=== PATIENT | male | born 1935 | race Caucasian/White ===

== ENCOUNTER 2019-06-28 09:11 | Outpatient (CLI) | payer MEDICARE, OTHER, SELFPAY ==
[2019-06-30 21:03] LABS: PSA, Free 4.51 ng/mL; PSA, Total 35.7 ng/mL (<=4.0)
== END 2019-06-28 09:12 | disposition home or self-care (01) ==
PROVIDERS: PCP Internal Medicine; Visit Provider Radiology Radiation Oncology
DX: C61 Malignant neoplasm of prostate (principal)
CPT/HCPCS: 36415; 84153; 84154

== ENCOUNTER 2020-02-01 06:35 | Outpatient (CLI) | payer MEDICARE, OTHER, SELFPAY ==
--- NOTE | ~2020-02-01 | NM_ITS ---
EXAMINATION: NM bone scan whole body DATE: 02/01/2020 10:11 INDICATION: Prostate cancer. TECHNIQUE: 23.7 mCi Tc-99m HDP was administered intravenously. Delayed whole-body scintigrams were o btained. COMPARISON: Bone scan 07/13/2019, CT chest, abdomen, and pelvis 02/01/2020 FINDINGS: There is joint-centimeters increased activity in the first carpometacarpal joints without r adiographic comparison, consistent with osteoarthritis. There is increased activity in lesser trochan ter of proximal left femur correlate with a sclerotic lesion by CT. There is increased activity in le ft ilium near the sacral iliac joint correlating with a sclerotic lesion by CT. There are foci of inc reased activity in L3, L4, and L5 correlating with sclerotic lesions by CT. There are multiple lesion s of increased activity in the ribs with CT correlates. There is a lesion of increased activity in T9 vertebral body correlating with a sclerotic lesion by CT. IMPRESSION: 1. Multiple bone lesions with worsening from 07/13/2019, consistent with metastatic disease. Reviewed, dictated and finalized at location A. IMPRESSION: 1. Multiple bone lesions with worsening from 07/13/2019, consistent with metastat ic disease.
--- NOTE | ~2020-02-01 | CT_ITS ---
EXAMINATION: CT chest abdomen pelvis w con EXAM DATE: 02/01/2020 07:14 INDICATION: Prostate cancer. L4 sclerotic focus. TECHNIQUE: Spiral CT of the chest, abdomen and pelvis was performed following intravenous injection o f 100 mL Omnipaque 350. Axial, coronal and sagittal images were reviewed. Coronal maximum intensity pixel images of chest reviewed. The dose-length product (DLP) for this examination was 910.19 mGy-c m. The exposure was tailored according to patient size (auto mA exposure control), and iterative rec onstruction (ASIR) was used as additional dose reduction technique. Comparison is made to prior exami nation from 07/13/2019. FINDINGS: CHEST: The lungs are clear. There is mild emphysema. There are no pleural or pericardial effusions. Tracheobronchial tree is patent. There is no mediastinal, hilar or axillary lymphadenopathy. Th ere is no pneumothorax. Heart normal in size. There are sternotomy wires, and cardiac/coronary coy rgical changes. Correlate with prior history. ABDOMEN PELVIS: Again there is mildly aneurysmal mid abdominal aorta at 3.5 cm, with short segment in timal flap. Moderate scattered aortoiliac arterial sclerotic disease. There is aneurysmal right commo n iliac artery to 3.4 cm. Multiple small liver cysts. Tiny cholelithiasis. Portal and splenic vein s are patent. Kidneys enhance symmetrically. There is no hydronephrosis. Exophytic left renal cyst measuring 4 cm. Patient has likely had prostatectomy. Pelvic lymph node dissection. The bladder is undistended at time of imaging. There is no retroperitoneal or pelvic lymphadenopathy. Small umbil ical abdominal wall dehiscence. The appendix is not positively visualized. There is no pericecal inflammatory change to suggest appe ndicitis. There is moderate scattered colonic diverticulosis. There is no adjacent inflammatory pacheco ge to suggest diverticulitis. The stomach and small bowel are unremarkable. There is expected amount of colonic stool. No free intraperitoneal gas. There is an old left scapular fracture. Again there is sclerosis involving sizable portion of the L4 vertebral body, increase in sclerosis compared to p rior study. There is 9 mm sclerotic focus in the right 6th rib fracture laterally not identified on p rior study. Old right 5th rib fracture laterally. IMPRESSION: 1. Interval increase in density of L4 sclerotic focus. Development of right 6th rib sclerotic focus. 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 2. Abdominal aortic and right iliac aneurysms. Short segment abdominal aortic intimal flap unchanged . 3. Colonic diverticulosis. 4. Mild emphysema. Reviewed, dictated and finalized at location A. IMPRESSION: 1. Interval increase in density of L4 sclerotic focus. Development of right 6t h rib sclerotic focus. 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 2. Abdominal aortic and right iliac aneurysms. Short segment abdominal aortic intimal flap unchanged. 3. Colonic diverticulosis. 4. Mild emphysema.
== END 2020-02-01 06:36 | disposition home or self-care (01) ==
LOC: ANHIMG 06:37
PROVIDERS: PCP Internal Medicine; Visit Provider Internal Medicine Hematology & Oncology
DX: C61 Malignant neoplasm of prostate (principal); M89.9 Disorder of bone, unspecified; I71.4 Abdominal aortic aneurysm, without rupture; K57.90 Diverticulosis of intestine, part unspecified, without perforation or abscess without bleeding; J43.9 Emphysema, unspecified
CPT/HCPCS: 71260; 74177; 78306; A9561; Q9967

== ENCOUNTER 2020-08-31 11:37 | Outpatient (CLI) | payer MEDICARE, OTHER, SELFPAY ==
--- NOTE | 2020-08-31 11:49 | ECG_ITS ---
Measurements Intervals [place] Rate: 74 P: -11 DC: 134 QRS: 18 QRSD: 94 T: 79 QT: 366 QTc: 406 Interpretive Statements SINUS RHYTHM BORDERLINE ST-T WAVE ABNORMALITY- ANTEROLAT/HIGH LAT LEADS BASELINE ARTIFACT- I, III, AVR, AVL, AVF BORDERLINE ECG Electronically Signed On 08-31-2020 12:41:57 [employer]CR[employer]E BLOCK [employer] by Hossein Martinez D.O.
[2020-08-31 12:39] LABS: INR 0.9; Partial Thromboplastin Time 28.7 SECONDS (22.3-36.8); Prothrombin Time 12.6 Seconds (11.1-14.7)
== END 2020-08-31 11:38 | disposition home or self-care (01) ==
LOC: ANHSURGERY 11:40
PROVIDERS: PCP Internal Medicine; Visit Provider Urology
DX: Z01.818 Encounter for other preprocedural examination (principal); R31.9 Hematuria, unspecified; I10 Essential (primary) hypertension; R94.31 Abnormal electrocardiogram [ECG] [EKG]
CPT/HCPCS: 36415; 85610; 85730; 87086; 93005

== ENCOUNTER → 2020-09-02 02:54 | Outpatient (CLI) | payer MEDICARE, OTHER, SELFPAY ==
[2020-09-02 19:41] LABS: SARS-CoV-2 RNA PCR Negative
== END ==
PROVIDERS: PCP Internal Medicine; Visit Provider Urology
DX: Z01.812 Encounter for preprocedural laboratory examination (principal); Z20.822 Contact with and (suspected) exposure to COVID-19
CPT/HCPCS: C9803; U0003; U0005

== ENCOUNTER → 2020-09-09 00:54 | Outpatient (CLI) | payer MEDICARE, OTHER, SELFPAY ==
[2020-09-09 19:47] LABS: SARS-CoV-2 RNA PCR Negative
== END ==
PROVIDERS: PCP Internal Medicine; Visit Provider Urology
DX: Z01.812 Encounter for preprocedural laboratory examination (principal); Z20.822 Contact with and (suspected) exposure to COVID-19
CPT/HCPCS: C9803; U0003; U0005

== ENCOUNTER 2020-09-12 00:54 | Day surgery (SDC) | payer MEDICARE, OTHER, SELFPAY ==
[2020-08-31 10:44] VITALS: BMI 27.3
[2020-09-05 13:57] VITALS: BMI 27.3
[2020-09-12] VITALS (8 sets, daily range): BP systolic 119–154; BP diastolic 46–71; PULSE 53–66; RESP 13–20; TEMP 36.4–36.9; O2SAT 97–100; BMI 27.2
--- NOTE | 2020-09-12 13:43 | WPDANESEPPF ---
Anes - Initial Pre Proc Eval Procedure: Operation Date: 09/12/20 15:30 Proposed Procedures p Trans Urethral Resection Bladder Tumor - Tony Robles MD Date/Time: 09/12/20 13:43 Surgeon: Tony Robles MD Pre Op Diagnosis: hematuria Patient Data Age: 85 Gender: M Height: 1.8 m Weight: 89 kg Allergies Allergy/AdvReac Type Severity Reaction Status Date / Time No Known Allergies Allergy Verified 09/12/20 13:46 Home Medications Medication Instructions Recorded Confirmed Type lisinopril 10 mg PO QAM 04/30/19 09/07/20 History metoprolol tartrate 25 mg PO BID 04/30/19 09/07/20 History simvastatin 20 mg PO HS 04/30/19 09/07/20 History aspirin 81 mg PO DAILY 05/16/20 09/07/20 History bicalutamide 50 mg PO DAILY 05/16/20 09/07/20 History tamsulosin 0.4 mg PO QAM 08/31/20 09/07/20 History ciprofloxacin HCl 500 mg PO Q12H 09/05/20 09/07/20 History Patient hx anesthesia problems: none Family hx anesthesia problems: none PMFSH Past Medical History Medical History (Updated 09/12/20 @ 13:46 by Matias Marion MD) Bone metastases CAD (coronary artery disease) Colon cancer HTN (hypertension) Hyperlipidemia Metastasis from malignant neoplasm of prostate Overweight (BMI 25.0-29.9) Surgical History Surgical History (Updated 09/12/20 @ 13:46 by Matias Marion MD) History of coronary artery stent placement S/P CABG (coronary artery bypass graft) Social History Social History Smoking packs per day: 1 Smoking cigarettes per day: 20.0 Years smoked: 30 Smoking pack-years: 30.00 Smoking status: Former smoker Tobacco type: cigarettes Smoking end date: 01/04/90 Alcohol intake: current Drinks per week: 3 Substance use: never Living arrangements: with family Additional living arrangements comments: Spiritual care concerns: No Anes - Eval Final PreProcedure Day of Procedure 09/12/20 13:43 Patient weight: overweight Heart: regular rate and rhythm Lungs: clear to auscultation and normal air movement Airway: Mallampati scale class II Neurological: alert and oriented Last oral intake: >/= 8 hours ASA classification: III Emergent: no Anesthetic plan: proceed Anesthesia type and monitoring: general LMA Informed Consent: The patient's anesthetic plan and its attendant risks and benefits were discussed with the patient/family/POA. Questions were solicited and answers provided to the satisfaction of the patient/family/POA.
--- NOTE | 2020-09-12 13:58 | WPDHPUPDATE1 ---
History and Physical Update Update Date/Time: 09/12/20 13:58 History and Physical has been reviewed, including an updated exam of the patient. There are NO changes in the patient's condition. Risks, benefits, and alternatives have been discussed and questions answered. Patient agrees to proceed with procedure. Proceed with transurethral resection of bladder tumor
[2020-09-12] MEDS: LACTATED RINGERS 1,000 ML 30 ML IV CONT (14:08)
[2020-09-12] MEDS: ceFAZolin 2 GM/D5W 50 ML 2 GM/50 ML BAG IVPB (14:43)
[2020-09-12] MEDS: LIDOCAINE HCL 2% GEL UROJET 10 ML PKG MUCOUS MEM (14:53)
--- NOTE | 2020-09-12 14:59 | P.OP_ITS ---
Procedure Note - Detailed Date of procedure: 09/12/20 Pre-op diagnosis: hematuria 1.5 cm small bladder tumor superior lateral to left ureteral orifice Post-op diagnosis: same Procedure performed: Transurethral resection of small bladder tumor 1.5 cm Description of procedure: Patient is taken to the operative suite and correctly identified. Once anesthesia was obtained he was placed in dorsal lithotomy position and prepped and draped usual sterile fashion. Twenty-four Liberian resectoscope sheath inserted in the bladder. The bladder is inspected in its entirety. Both ureters is normal anatomic position. The tumors located just superior lateral to the left ureteral orifice and measures approximately 1.5 cm. We resected this in its entirety and fulgurated the base. There was good hemostasis at termination of procedure. 2% viscous lidocaine was inserted into the urethra patient is taken recovery room stable condition. He will call for path results in 1 week's time. Anesthesia: GLMA Surgeon: Tony Robles MD Drains: No Packing: No Pathology: yes Complications: No immediate complications Condition: stable Disposition: PACU
== END 2020-09-12 16:30 | disposition home or self-care (01) ==
PROVIDERS: PCP Internal Medicine; Visit Provider Urology
PROC: 0TBB8ZZ Excision of Bladder, Via Natural or Artificial Opening Endoscopic (ICD-10-PCS; CPT 52234; principal; 2020-09-12 15:30)
DX: C67.8 Malignant neoplasm of overlapping sites of bladder (principal); C61 Malignant neoplasm of prostate; C79.51 Secondary malignant neoplasm of bone; I10 Essential (primary) hypertension; I25.10 Atherosclerotic heart disease of native coronary artery without angina pectoris; E78.5 Hyperlipidemia, unspecified; Z95.5 Presence of coronary angioplasty implant and graft; Z95.1 Presence of aortocoronary bypass graft; Z79.82 Long term (current) use of aspirin; Z87.891 Personal history of nicotine dependence
CPT/HCPCS: 52234; 88305; 88307; A9270; J0690; J1100; J2405; J2704; J3010; J7120

== ENCOUNTER 2020-12-01 08:28 | Outpatient (CLI) | payer MEDICARE, OTHER, SELFPAY ==
--- NOTE | ~2020-12-01 | NM_ITS ---
EXAMINATION: NM bone scan whole body DATE: 12/01/2020 12:25 INDICATION: Prostate cancer TECHNIQUE: 5 mCi Tc-99m HDP was administered intravenously. Delayed whole-body scintigrams were obta ined. COMPARISON: CT and bone scan dated 02/01/[address] dated 12/01/2020 FINDINGS: Again seen are numerous scattered bilateral foci of increased bone uptake throughout the axial and pr oximal appendicular skeleton consistent with metastatic disease. Many lesions appear relatively uncha nged however some demonstrate decreased in some demonstrate increased uptake relative to the prior st udy. Unchanged likely degenerative joint centered uptake at the bilateral acromioclavicular joints an d the radial aspect of the bilateral carpi. IMPRESSION: 1. Relatively similar pattern of widespread foci of abnormal bone uptake in the axial and proximal ap pendicular skeleton consistent with metastatic prostate cancer. There has however been some change in the degree of intensity of uptake with a few lesions demonstrating decreased and some demonstrating increased activity relative to the prior study. Reviewed, dictated and finalized at location A. IMPRESSION: 1. Relatively similar pattern of widespread foci of abnormal bone uptake in the axial and proximal appendicular skeleton consistent with metastatic prostate c ancer. There has however been some change in the degree of intensity of uptake with a few lesions demonstrating decreased and some demonstrating increased act ivity relative to the prior study.
--- NOTE | ~2020-12-01 | CT_ITS ---
EXAMINATION: CT abdomen pelvis w con DATE: 12/01/2020 09:30 INDICATION: Prostate cancer TECHNIQUE: Computed tomography (CT) of the abdomen and pelvis was performed with 100 mL Omnipaque-350 intravenous contrast. Automated exposure control and iterative reconstruction technique were employe d. The dose-length product was 552.14 mGy-cm. COMPARISON: 02/01/2020 FINDINGS: Mild atelectasis in the bilateral lower lobes. Heart size is normal. Atherosclerotic coronary artery calcification. Aortic valve calcification. No pericardial or pleural effusion. Atherosclerotic and to rtuous thoracic aorta. Multiple hepatic cysts, the largest a 2.0 cm cyst with suggestion of a nearly indiscernible internal septation. Gallbladder, spleen, pancreas and bilateral adrenal glands are normal. Bilateral renal cys ts, the largest measuring 4.0 cm the left kidney. Decompressed bladder is unremarkable. Postoperative changes of prior prostatectomy with resection of the seminal vesicles and bilateral pelvic lymph nod e dissection. Very small fat-containing right inguinal hernia. Postoperative change of prior partial colectomy with anastomotic suture line at the distal sigmoid colon. Moderate diverticulosis along the remaining descending and sigmoid colon without adjacent inflammatory change to suggest diverticuliti s. 3.8 x 3.4 cm infrarenal abdominal aortic aneurysm with unchanged dimensions as measured orthogonal to the floor on the sagittal and coronal images respectively. There is also a 3.2 x 3.0 cm aneurysm of the right common iliac artery. Chronic aortic dissection with unchanged interval flaps in the infrare nal abdominal aorta and at the bifurcation of the right common iliac artery. No free intraperitoneal gas or fluid. No pathologically enlarged abdominal or pelvic lymphadenopathy. There are multiple sclerotic bone lesions consistent with metastatic prostate cancer, the largest oc cupying the majority of the L4 vertebral body and at the left ilium along the left sacroiliac joint w ith numerous smaller sclerotic lesions scattered throughout the remainder of the spine, the pelvis an d multiple ribs. Although not exclude a few of the tiny lesions may be new, the majority can be retro spectively ascertained on the prior study but are significantly more conspicuous in the current study due to increased density of the sclerosis. IMPRESSION: 1. Continued increasing sclerosis of numerous scattered sclerotic bone lesions consistent with metast atic prostate cancer. 2. Postoperative change of resection of the prostate, seminal vesicles and bilateral pelvic lymph nod e dissection. 3. Moderate distal colonic diverticulosis with change of prior partial colectomy and reanastomosis at the distal sigmoid colon. 4. No significant interval change in 3.8 cm infrarenal abdominal aortic aneurysm and 3.2 cm right com mon iliac artery aneurysm, both with chronic dissections and small intimal flaps. Reviewed, dictated and finalized at location A. IMPRESSION: 1. Continued increasing sclerosis of numerous scattered sclerotic bone lesions consistent with metastatic prostate cancer. 2. Postoperative change of resection of the prostate, seminal vesicles and bila teral pelvic lymph node dissection. 3. Moderate distal colonic diverticulosis with change of prior partial colectom y and reanastomosis at the distal sigmoid colon. 4. No significant interval change in 3.8 cm infrarenal abdominal aortic aneurys m and 3.2 cm right common iliac artery aneurysm, both with chronic dissections and small intimal flaps.
== END 2020-12-01 08:29 | disposition home or self-care (01) ==
PROVIDERS: PCP Internal Medicine; Visit Provider Internal Medicine Hematology & Oncology
DX: C61 Malignant neoplasm of prostate (principal); K57.30 Diverticulosis of large intestine without perforation or abscess without bleeding
CPT/HCPCS: 74177; 78306; A9561; Q9967